=== PATIENT | female | born 1990 | race Caucasian/White ===

== ENCOUNTER → 2024-09-22 07:38 | Outpatient (REF) | payer BC, SELFPAY | LOC: HWEVLT 07:38 | PROVIDERS: ATTENDING PHYSICIAN Radiology Vascular & Interventional Radiology | DX: I83.893 Varicose veins of bilateral lower extremities with other complications (principal) | CPT/HCPCS: 93970 ==

== ENCOUNTER → 2025-02-23 09:26 | Outpatient (REF) | payer BC, SELFPAY | LOC: HWEVLT 09:26 | PROVIDERS: ATTENDING PHYSICIAN Radiology Vascular & Interventional Radiology | DX: I83.892 Varicose veins of left lower extremity with other complications (principal) | CPT/HCPCS: 36478; C1769 ==

== ENCOUNTER → 2025-03-07 10:04 | Outpatient (REF) | payer BC, SELFPAY | LOC: HWEVLT 10:04 | PROVIDERS: ATTENDING PHYSICIAN Radiology Vascular & Interventional Radiology | DX: I83.892 Varicose veins of left lower extremity with other complications (principal) | CPT/HCPCS: 93971 ==